=== PATIENT | male | born 1950 | race Caucasian/White ===

== ENCOUNTER → 2016-07-31 | Outpatient (CLI) | payer OTHER ==
--- NOTE | 2016-08-01 10:03 | P.ARTDOP ---
Arterial Doppler LOWER EXTREMITY ARTERIAL DOPPLER: DATE OF SERVICE: 07/31/2016 Reason for study: Left leg pain. Doppler waveforms: Multiphasic on the left. Pulse volume recording: Normal configuration throughout on the left. Right toe plethysmography waveforms appear normal.. Pressure gradients: None. Ankle-brachial indices: 0.97 on the right and greater than 1 on the left. Toe pressures: [] on the right, 102 on the left Impression: Normal study with limitations on the portion done on the right side.
== END | disposition home or self-care (01) ==
LOC: RADUSWWP 08:40
PROVIDERS: ATTEND Family Medicine
DX: M79.662 Pain in left lower leg (principal)
CPT/HCPCS: 93922

== ENCOUNTER → 2018-01-10 | Outpatient (CLI) | payer OTHER ==
--- NOTE | 2018-01-10 10:45 | US ---
EXAMINATION TYPE: US abdomen complete DATE OF EXAM: 01/10/2018 COMPARISON: NONE CLINICAL HISTORY: I73.9 Peripheral vascular disease, unspecified. AAA screening per order; smoker x 5 3 years EXAM MEASUREMENTS: Liver Length: 10.6 cm Gallbladder Wall: 0.2 cm CBD: 0.2 cm Spleen: 8.4 x 3.9 x 6.8 cm Right Kidney: 10.6 x 6.5 x 7.8 cm Left Kidney: 11.1 x 5.9 x 5.6 cm Pancreas: Heterogeneous Liver: periportal wall brightness is seen Gallbladder: wnl Evidence for sonographic Summers's sign: no CBD: wnl Spleen: small appearance Right Kidney: multiple cortical cysts seen with largest = 3.2 x 3.5 x 3.5cm mid pole; renal cyst not ed at pelvis; lateral lower pole round hyperechoic focus seen may be angiomyolipoma vs. other. Left Kidney: multiple renal cysts primarily at parapelvic region with largest = 1.7 x 1.7 x 1.3cm Upper IVC: wnl Abd Aorta: Ectasia Visualized pancreas is heterogeneous without worrisome mass or ductal dilatation. Aorta shows ectasia distally without greater than 3 cm aneurysm. IVC is visualized near upper abdomen. Visualized liver shows some hyperechogenicity central periPortal region could reflect calcification or pneumobilia. Ga llbladder is seen without shadowing gallstones. Simple appearing cysts are scattered throughout both kidneys. IMPRESSION: Ectasia of the abdominal aorta without greater than 3 cm AAA. Multiple simple appearing c ysts scattered throughout both kidneys. Cannot exclude central ductal calcification or pneumobilia. A dvise CT follow-up.
== END | disposition home or self-care (01) ==
LOC: RADUSWWP 08:30
DX: I77.811 Abdominal aortic ectasia (principal)
CPT/HCPCS: 76700

== ENCOUNTER → 2018-02-14 | Outpatient (CLI) | payer OTHER ==
[2018-02-14 08:47] LABS: Blood Urea Nitrogen 17 mg/dL (9-20)
--- NOTE | 2018-02-14 10:03 | CT ---
EXAMINATION TYPE: CT abdomen wo/w con DATE OF EXAM: 02/14/2018 COMPARISON: Ultrasound 01/10/2018 HISTORY: previous abnormal findings CT DLP: 965.50 mGycm CONTRAST: CT scan of the abdomen is performed with Oral Contrast and without and with IV Contrast, patient inj ected with 100 mL of Isovue 300. FINDINGS: LUNG BASES-: No visible nodule. No infiltrate. LIVER/GB: No calcified gallstones. No space occupying hepatic lesion. Biliary tree is of normal ca liber. PANCREAS: No inflammation. No distinct mass. SPLEEN: No splenic enlargement. No lesion seen. ADRENALS: No nodule. No thickening. KIDNEYS/BLADDER: No hydronephrosis. No nephrolithiasis. No distinct solid renal mass. Multiple bi lateral renal cysts. The largest cyst on the right measures 3.8 x 2.7 cm and is parapelvic in locatio n. On the left eye there are also multiple parapelvic and renal cortical cysts largest of which measu res 2.7 cm. BOWEL: Normal appendix. Normal bowel caliber. No inflammation. LYMPH NODES: No greater than 1cm abdominal or pelvic lymph nodes are appreciated. AORTA: No significant abnormality. OSSEOUS STRUCTURES: Degenerative changes noted. OTHER: No significant additional abnormality is seen. IMPRESSION: 1. Multiple simple renal cortical and parapelvic cysts noted.
== END | disposition home or self-care (01) ==
LOC: RADCTMAIN 08:03
DX: N28.1 Cyst of kidney, acquired (principal)
CPT/HCPCS: 82565; 84520; 74170; 36415; Q9967

== ENCOUNTER 2019-10-29 14:20 | Emergency (ER) | payer OTHER ==
[2019-10-29 14:28] VITALS: BP 173/92; PULSE 89; RESP 18; TEMP 98
[2019-10-29] MEDS ORDERED: FAMOTIDINE 20 MG TAB PO STA (14:34)
[2019-10-29] MEDS ORDERED: methylPREDNISolone SOD SUCCI 125 MG/2 ML VIAL IM ONE (14:34)
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
== END 2019-10-29 15:42 | disposition home or self-care (01) ==
LOC: EC 14:20
DX: T63.441A Toxic effect of venom of bees, accidental (unintentional), initial encounter (principal); I25.2 Old myocardial infarction; F17.200 Nicotine dependence, unspecified, uncomplicated; Z91.030 Bee allergy status; Z91.018 Allergy to other foods; Z79.82 Long term (current) use of aspirin
CPT/HCPCS: 96372; 99283; J2930

== ENCOUNTER → 2020-12-15 | Outpatient (CLI) | payer OTHER ==
--- NOTE | 2020-12-16 08:44 | CT ---
EXAMINATION TYPE: CT abdomen wo con DATE OF EXAM: 12/15/2020 COMPARISON: 02/14/2018 HISTORY: 70-year-old male R93.5, abnormal findings in diagnostic imaging, complaining of back pain. TECHNIQUE: Contiguous axial scanning of the abdomen without IV contrast. Coronal and sagittal reconst ructions performed. CT DLP: 284.7 mGycm Automated exposure control for dose reduction was used. FINDINGS: Heart normal size without pericardial effusion. Stable mild aneurysm lower descending thoracic aorta at 3.1 cm. Mild emphysematous change in the lower lungs. Some strandy left basilar atelectasis or sca rring. Small hiatal hernia. Noncontrast appearance of the liver, gallbladder, adrenal glands, spleen, and pancreas show no gross abdomen body by noncontrast CT. No dilated small bowel, free fluid, or free air. No mesenteric or retroperitoneal lymphadenopathy. Mild to moderate stool burden. No pericolonic inflammatory change. Pelvis not imaged. Moderate atherosclerotic calcifications and plaque continues into the abdominal aorta. There is fusif orm aneurysm infrarenal abdominal aorta to 3.5 cm versus 3.4 cm, previously. Aneurysm right common iliac artery 2.0 cm versus 1.8 cm, previously. Aneurysm left common iliac artery 2.2 cm versus 2.0 cm, previously. Redemonstrated are bilateral renal cysts measuring up to 4.3 cm on the right and 3.4 cm on the left. These are both renal cortical and parapelvic cysts and overall demonstrate a similar configuration. N o new contour deforming renal lesion is identified. Punctate nonobstructive 3 mm right renal calculus. Bones: Moderate degenerative disc disease L4-L5 with hypertrophic facet arthropathy. IMPRESSION: 1. REDEMONSTRATED COMBINATION OF RENAL CORTICAL AND PARAPELVIC CYSTS MEASURING UP TO 4.3 CM ON THE RI GHT AND 3.4 CM ON THE LEFT. PUNCTATE NONOBSTRUCTIVE 3 MM RIGHT RENAL CALCULUS. 2. ANEURYSMAL AORTA AND COMMON ILIAC ARTERIES. LOWER DESCENDING THORACIC AORTA STABLE AT 3.1 CM. INFR ARENAL ABDOMINAL AORTA MINIMALLY INCREASED AT 3.5 CM. RIGHT AND LEFT COMMON ILIAC ARTERY MEASURE 2.0 AND 2.2 CM, RESPECTIVELY (INCREASED FROM 1.8 CM AND 2.0 CM, PREVIOUSLY).
== END | disposition home or self-care (01) ==
LOC: RADCTMAIN 16:41
DX: N20.0 Calculus of kidney (principal); N28.1 Cyst of kidney, acquired; I71.4 Abdominal aortic aneurysm, without rupture
CPT/HCPCS: 74150

== ENCOUNTER → 2021-02-27 | Outpatient (CLI) | payer OTHER ==
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
== END | disposition home or self-care (01) ==
LOC: RADCTMAIN 13:45
DX: M48.061 Spinal stenosis, lumbar region without neurogenic claudication (principal); M51.16 Intervertebral disc disorders with radiculopathy, lumbar region; M43.16 Spondylolisthesis, lumbar region; M99.73 Connective tissue and disc stenosis of intervertebral foramina of lumbar region
CPT/HCPCS: 72131

== ENCOUNTER 2021-08-21 15:57 | Observation (INO) | payer OTHER, MEDICARE ==
[2021-08-21] MEDS ORDERED: ASPIRIN 81 MG PO STA (16:13)
[2021-08-21] MEDS ORDERED: NITROGLYCERIN SL TABS 0.4 MG TAB SUBLINGUAL STA ×2 (16:21→16:47)
[2021-08-21 16:29] LABS: Basophils # (A) 0.1 k/uL (0-0.2); Basophils % (A) 1 %; Eosinophils # (A) 0.4 k/uL (0-0.7); Eosinophils % (A) 5 %; HCT 38.7 % (39.0-53.0); HGB 12.8 gm/dL (13.0-17.5); Lymphocytes # (A) 4.1 k/uL (1.0-4.8); Lymphocytes % (A) 48 %; MCH 30.9 pg (25.0-35.0); MCV 93.6 fL (80.0-100.0); Mean Platelet Volume 7.8; Monocytes # (A) 0.3 k/uL (0-1.0); Monocytes % (A) 3 %; Neutrophils # (A) 3.4 k/uL (1.3-7.7); Neutrophils % (A) 41 %; Platelet Count 215 k/uL (150-450); RBC 4.14 m/uL (4.30-5.90); RDW 14.7 % (11.5-15.5); WBC 8.5 k/uL (3.8-10.6)
[2021-08-21 16:37] LABS: INR 0.9 (<1.2); Partial Thromboplastin Time 22.1 sec (22.0-30.0); Prothrombin Time 9.8 sec (9.0-12.0)
[2021-08-21 16:42] LABS: ALT 13 U/L (4-49); AST 26 U/L (17-59); African American GFR (CKD) >90 (>60 ml/min/1.73 sqM); Albumin 4.4 g/dL (3.5-5.0); Alkaline Phosphatase 88 U/L (38-126); Anion Gap 9 mmol/L; Blood Urea Nitrogen 19 mg/dL (9-20); Calcium 9.2 mg/dL (8.4-10.2); Carbon Dioxide 23 mmol/L (22-30); Chloride 107 mmol/L (98-107); Glucose 96 mg/dL (74-99); Magnesium 2.3 mg/dL (1.6-2.3); Non-African American GFR(CKD) 84 (>60 ml/min/1.73 sqM); Potassium 4.4 mmol/L (3.5-5.1); Sodium 139 mmol/L (137-145); Total Bilirubin 0.3 mg/dL (0.2-1.3); Total Protein 7.6 g/dL (6.3-8.2)
--- NOTE | 2021-08-21 16:45 | XR ---
EXAMINATION TYPE: XR chest 2V DATE OF EXAM: 08/21/2021 COMPARISON: 01/03/2016 HISTORY: Chest pain TECHNIQUE: FINDINGS: There is no heart failure nor confluent pneumonic infiltrate. Costophrenic angles are clear . There are chest leads. Heart size is normal. Bony thorax is intact. IMPRESSION: Normal chest. No adverse change.
[2021-08-21] MEDS ORDERED: NITROGLYCERIN SL TABS 0.4 MG TAB SUBLINGUAL PRN (17:10)
[2021-08-21] MEDS ORDERED: NALOXONE 0.4 MG/ML 1 ML VIAL IV PRN (17:10)
[2021-08-21] MEDS ORDERED: HEPARIN SODIUM 1,000 UN/ML (10ML VL) IV ONE (17:10)
[2021-08-21] MEDS ORDERED: HEPARIN SODIUM 1,000 UN/ML (10ML VL) IV PRN (17:10)
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
[2021-08-21] MEDS ORDERED: HEPARIN SOD,PORK IN 0.45% NACL 25,000 UNIT in 0.45% NACL 1 250ML.BAG IV SCH (17:15)
[2021-08-21] MEDS: PANTOPRAZOLE 40 MG TABLET PO SCH (20:04)
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
[2021-08-22 06:29] LABS: Prothrombin Time 10.5 sec (9.0-12.0)
[2021-08-22 07:22] VITALS: RESP 16; TEMP 97.8
[2021-08-22] MEDS ORDERED: ASPIRIN 81 MG PO SCH (09:00)
[2021-08-22 09:12] LABS: Basophils # (A) 0.05 X 10*3/uL (0.00-0.10); Basophils % (A) 0.7 %; Eosinophils # (A) 0.38 X 10*3/uL (0.04-0.35); Eosinophils % (A) 5.3 %; HCT 35.9 % (39.6-50.0); HGB 11.4 g/dL (13.0-17.0); Immature Grans, Automated 0.3 %; Lymphocytes # (A) 3.08 X 10*3/uL (0.90-5.00); MCH 28.9 pg (27.0-32.0); MCHC 31.8 g/dL (32.0-37.0); MCV 91.1 fL (80.0-97.0); Mean Platelet Volume 10.5 fL (9.5-12.2); Monocytes # (A) 0.46 X 10*3/uL (0.20-1.00); Monocytes % (A) 6.4 %; NRBC Per 100 WBC 0 /100 WBCS (0.0-0.0); Neutrophils # (A) 3.17 X 10*3/uL (1.80-7.70); Neutrophils % (A) 44.3 %; Platelet Count 186 X 10*3/uL (140-440); RBC 3.94 X 10*6/uL (4.40-5.60); RDW 15.2 % (11.5-14.5); WBC 7.16 X 10*3/uL (4.50-10.00)
[2021-08-22] MEDS ORDERED: REGADENOSON 0.4 MG/5 ML SYRINGE IV PRN (09:33)
[2021-08-22] MEDS ORDERED: CAFFEINE CITRATE 60 MG/3 ML VIAL IV PRN (09:33)
[2021-08-22] MEDS ORDERED: AMINOPHYLLINE 500 MG/20 ML VIAL IV PRN (09:33)
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
[2021-08-22] MEDS: PANTOPRAZOLE 40 MG TABLET PO SCH (10:05)
--- NOTE | 2021-08-22 11:48 | CA ---
Transthoracic Echo Report Name: Franky Nation Age: 71 Gender: M : 1950 Exam Date: 08/22/2021 08:15 Exam Location: [place] [facility] Ht (in): 71 Wt (lb): 165 Ordering Physician: Troy Ravi MD Attending/Referring Phys: Manager Of [employer] Procedure CPT: Indications: Chest Pain Cardiac Hx: Technical Quality: Good Contrast 1: Total Dose (mL): Contrast 2: Total Dose (mL): MEASUREMENTS (Male / Female) Normal Values 2D ECHO LV Diastolic Diameter PLAX 5.0 cm 4.2 - 5.9 / 3.9 - 5.3 cm LV Systolic Diameter PLAX 2.2 cm IVS Diastolic Thickness 0.7 cm 0.6 - 1.0 / 0.6 - 0.9 cm LVPW Diastolic Thickness 0.9 cm 0.6 - 1.0 / 0.6 - 0.9 cm LV Relative Wall Thickness 0.3 RV Internal Dim ED PLAX 2.0 cm LA Volume 39.5 cm??? 18 - 58 / 22 - 52 cm??? M-MODE Aortic Root Diameter MM 3.9 cm LA Systolic Diameter MM 2.3 cm LA Ao Ratio MM 0.6 MV E Point Septal Separation 1.4 cm AV Cusp Separation MM 2.1 cm DOPPLER AV Peak Velocity 99.7 cm/s AV Peak Gradient 4.0 mmHg AI Peak Velocity 110.2 cm/s AI Peak Gradient 4.9 mmHg AI Pressure Half Time 1720.3 ms MV Area PHT 3.3 cm??? Mitral E Point Velocity 71.2 cm/s Mitral A Point Velocity 88.7 cm/s Mitral E to A Ratio 0.8 MV Deceleration Time 229.5 ms MV E' Velocity 6.0 cm/s Mitral E to MV E' Ratio 11.9 TR Peak Velocity 126.0 cm/s TR Peak Gradient 6.3 mmHg Right Ventricular Systolic Press 10.8 mmHg FINDINGS Left Ventricle Normal Left ventricular size, wall thickness, systolic function with no obvious regional wall motion abnormalities. Normal Left ventricular diastolic filling pattern. Left ventricular ejection fraction is estimated at 55-60 %. Right Ventricle The right ventricle is normal in size and function. Right Atrium The right atrium is normal in size. Left Atrium The left atrium is normal in size. Mitral Valve Structurally normal mitral valve without significant stenosis or prolapse. There is trace mitral regurgitation. Aortic Valve Structurally normal aortic valve without significant sclerosis or stenosis. There is no aortic regurgitation. Tricuspid Valve Structurally normal tricuspid valve without significant stenosis. Pulmonary artery systolic pressure is normal. Trace tricuspid regurgitation. Pulmonic Valve Structurally normal pulmonic valve without significant stenosis. There is no pulmonic regurgitation. Pericardium Normal pericardium without effusion. Aorta Normal aortic root dimension. CONCLUSIONS Normal LV function Previewed by: Dr. David Parr MD (Electronically Signed) Final Date: 22 August 2021 11:47
[2021-08-22 12:45] LABS: Anion Gap 10.5 mmol/L (10.00-18.00); BUN/Creat Ratio 15.23 Ratio (12.00-20.00); Blood Urea Nitrogen 14.3 mg/dL (9.0-27.0); Calcium 8.7 mg/dL (8.7-10.3); Carbon Dioxide 22.7 mmol/L (20.0-27.5); Non-African American GFR(CKD) 80.2 (60.0-200.0); Potassium 4.7 mmol/L (3.5-5.5)
--- NOTE | 2021-08-22 13:02 | EST ---
EXERCISE STRESS INDICATION: Chest pain. AGE: 71 SEX: M HT: @@ WT: @@ PROTOCOL: @@ STAGE: @@ DURATION OF EXERCISE: @@ HEART RATE REST: @@ BLOOD PRESSURE REST: @@ MAXIMUM HEART RATE ACHIEVED: @@ MAXIMUM BLOOD PRESSURE: @@ 85% MPHR: @@ 100% MPHR: @@ METS: @@ RESULTS: Baseline EKG shows sinus rhythm, normal axis, normal intervals. Patient was given intravenous Lexiscan as per protocol. Did not have chest pain or diagnostic ST-segment depression. CONCLUSIONS: 1. Negative stress test by EKG criteria. 2. Cardiolite portion of the stress test will be reported separately. MMODL / IJN: [id number] /
--- NOTE | 2021-08-22 13:20 | NM ---
EXAMINATION TYPE: NM stress lexiscan cardiolite DATE OF EXAM: 08/22/2021 COMPARISON: NONE HISTORY: 71-year-old male chest pain, vertigo. 25+-pack-year history of smoking, previous [place], family history of heart disease. TECHNIQUE: After the intravenous administration of 9.8 mCi Tc 99m Sestamibi - Cardiolite resting SPE CT images acquired 45 minutes post injection. The patient received 0.4mg Lexiscan, 25.5 mCi Tc 99m Sestamibi - Stress images obtained [address] injection FINDINGS: Review of stress and rest SPECT images demonstrates a small fixed perfusion defect along the mid to a pical inferoseptal wall. No additional distinct perfusion abnormality. Gated analysis shows normal w all motion with an estimated left ventricular ejection fraction of 67 %. TID is calculated at 1.06, upper limits of normal. IMPRESSION: 1. 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 2. No scintigraphic evidence for reversible ischemia.
[2021-08-22 13:54] VITALS: BP 158/55; PULSE 53
--- NOTE | 2021-08-22 14:13 | P.DS ---
Providers Date of admission: 08/21/21 17:27 Expected date of discharge: 08/22/21 Attending physician: Maggi Hassan MD Consults: 08/21/21 17:10 Consult Physician Routine Consulting Provider: [facility] Consult Reason/Comments: chest pain, concern for unstable angina Do you want consulting provider notified?: Yes Primary care physician: [facility] Hospital Course: Chest pain, atypical Hypertension 71-year-old male with history of coronary artery disease presented for sudden onset chest pain. Upon arrival patient was afebrile, 197/86, heart rate 70, 100% room air. CBC was unremarkable. Chemistries are unremarkable. Liver function tests were unremarkable. Coags were unremarkable. Initial troponin was less than 0.012, trended negative. EKG showed normal sinus rhythm without ischemic changes. Chest x-ray showed normal chest without any acute cardiopulmonary pathology. Patient was treated with aspirin, statin, heparin drip. Patient was seen by cardiology and recommended to undergo Lexiscan stress test. This scan was negative for reversible ischemia, but did show a fixed defect in the inferior aspect of the heart consistent with old infarct. Patient was cleared by cardiology to go home, discharged with new medications were aspirin and statin. Also discharge with new medication for metoprolol. Patient will follow-up with PCP and cardiology. Gen: awake, alert HEENT: normocephalic, atraumatic, good hearing acuity, moist mucous membranes Resp: good air exchange, breathing comfortably with no accessory muscle use CVS: good distal perfusion x 4, GI: soft, NTTP, ND : no SPT, no CVAT, art catheter not present MSK: no pitting edema, no clubbing Neuro: non-focal, moving all extremities Psych: cooperative, euthymic mood Patient Condition at Discharge: Good Plan - Discharge Summary Discharge Rx Participant: No New Discharge Prescriptions: New Atorvastatin [Lipitor] 80 mg PO HS #30 tab Continue Aspirin EC [Ecotrin Low Dose] 81 mg PO DAILY Discontinued Ibuprofen [Motrin] 600 mg PO Q6H PRN PRN Reason: Pain Discharge Medication List Aspirin EC [Ecotrin Low Dose] 81 mg PO DAILY 10/05/15 [History] Atorvastatin [Lipitor] 80 mg PO HS #30 tab 08/22/21 [Rx] Follow up Appointment(s)/Referral(s): [facility],Clinic [Primary Care Provider] - 1-2 days Discharge Disposition: HOME SELF-CARE
== END 2021-08-22 15:00 | disposition home or self-care (01) ==
LOC: EC 15:57 → 6NMEDSUR 17:27
PROVIDERS: ADMIT Internal Medicine; ATTEND Internal Medicine
DX: R07.89 Other chest pain (principal); I10 Essential (primary) hypertension; I25.10 Atherosclerotic heart disease of native coronary artery without angina pectoris; D64.9 Anemia, unspecified; I25.2 Old myocardial infarction; R61 Generalized hyperhidrosis; F43.10 Post-traumatic stress disorder, unspecified; F17.210 Nicotine dependence, cigarettes, uncomplicated; Z77.098 Contact with and (suspected) exposure to other hazardous, chiefly nonmedicinal, chemicals; Z79.82 Long term (current) use of aspirin; Z91.030 Bee allergy status; Z91.018 Allergy to other foods; Z87.828 Personal history of other (healed) physical injury and trauma; Z80.9 Family history of malignant neoplasm, unspecified; Z82.49 Family history of ischemic heart disease and other diseases of the circulatory system
CPT/HCPCS: 96366 ×3; 96376; 96365; 99291; 36415; 93005; 93017; 93306; 80053; 80048; 83735; 84484; 85025 ×2; 85610 ×2; 85730 ×2; 71046; 78452; G0378 ×2; A9500; J1644 ×2; J2785

== ENCOUNTER 2022-02-12 11:18 | Emergency (ER) | payer OTHER ==
--- NOTE | 2022-02-12 12:15 | XR ---
EXAMINATION TYPE: XR pelvis AP view DATE OF EXAM: 02/12/2022 COMPARISON: None HISTORY: Fall, pain TECHNIQUE: AP pelvis FINDINGS: There is a left hip prosthesis. No acute fractures or dislocations are evident. There is mo derate degenerative change of the right hip. Follow up exams can be performed 7-10 days of acute trau ma for continued pain. IMPRESSION: 1. No acute osseous abnormalities AP pelvis
--- NOTE | 2022-02-12 12:16 | XR ---
EXAMINATION TYPE: XR knee complete LT DATE OF EXAM: 02/12/2022 COMPARISON: None HISTORY: Fall, pain TECHNIQUE: 3 view left knee FINDINGS: Mild narrowing medial lateral compartment joint spaces is present. No acute fracture or dis location is evident. No joint effusion is evident. Small posterior superior patellar spur is present. Follow up exams can be performed 7-10 days from acute trauma for continued pain. IMPRESSION: 1. No acute osseous abnormality left knee
--- NOTE | 2022-02-12 12:17 | XR ---
EXAMINATION TYPE: XR femur LT DATE OF EXAM: 02/12/2022 COMPARISON: None HISTORY: Fall, pain TECHNIQUE: 2 view left femur FINDINGS: Left femoral prosthesis is present. Acetabular component is present. No acute fracture or dislocation is evident. Mild degenerative changes are at the knee. Acetabular sp urs present. Vascular calcification is noted. Follow-up exams can be performed as clinically indicate d. IMPRESSION: 1. No acute osseous abnormality left femur
[2022-02-12] MEDS ORDERED: ACET/COD 300 MG/30 MG STARTER PACK 6 TAB BTL PO STA (12:29)
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
[2022-02-12 12:45] VITALS: RESP 18
[2022-02-12 12:46] VITALS: BP 138/78; PULSE 89; TEMP 97.5
== END 2022-02-12 12:40 | disposition home or self-care (01) ==
LOC: EC 11:18
DX: S80.12XA Contusion of left lower leg, initial encounter (principal); I25.2 Old myocardial infarction; F17.200 Nicotine dependence, unspecified, uncomplicated; Z91.030 Bee allergy status; Z91.018 Allergy to other foods; Z79.82 Long term (current) use of aspirin; W19.XXXA Unspecified fall, initial encounter; Y92.009 Unspecified place in unspecified non-institutional (private) residence as the place of occurrence of the external cause
CPT/HCPCS: 72170; 99284

== ENCOUNTER → 2022-09-03 | Outpatient (CLI) | payer OTHER | END | disposition home or self-care (01) | LOC: LABPAT 13:29 | PROVIDERS: ATTEND Orthopaedic Surgery | DX: Z01.812 Encounter for preprocedural laboratory examination (principal); M16.11 Unilateral primary osteoarthritis, right hip; Z22.322 Carrier or suspected carrier of Methicillin resistant Staphylococcus aureus | CPT/HCPCS: 87070 ==

== ENCOUNTER 2022-09-10 08:03 | Day surgery (SDC) | payer OTHER ==
--- NOTE | 2022-09-09 11:51 | HP ---
HISTORY AND PHYSICAL DATE OF SURGERY: 09/10/2022. HISTORY OF PRESENT ILLNESS: Franky Nation is a 72-year-old patient seen with symptomatic right hip osteoarthritis. We discussed options regarding treatment. He elected to proceed with direct anterior right total hip arthroplasty. Consent regarding the procedure was obtained. PAST MEDICAL HISTORY: Noncontributory. PAST SURGICAL HISTORY: Left total hip arthroplasty. DAILY MEDICATIONS: Aspirin, Tylenol. ALLERGIES: None. SOCIAL HISTORY: Denies tobacco use. PHYSICAL EVALUATION OF THE RIGHT HIP: He has diffuse tenderness about the hip girdle. Limited range of motion. Severe pain. Positive hip impingement sign. Straight-leg raise negative. His distal neurovascular exam is intact. RADIOGRAPHS: Revealed severe osteoarthritic changes. IMPRESSION: Right hip osteoarthritis. PLAN: Direct anterior right total hip arthroplasty. MMODL / IJN: [id number] /
[~2022-09-10 08:03] MED LIST: DEXAMETHASONE SOD PHOSPHATE 4 MG/ML 1 ML VIAL IV ONE; HYDROmorphone 0.5 MG/0.5 ML SYRINGE IVP PRN; LIDOCAINE 1% (10MG/ML) FOR IV START INTRADERMA PRN; ONDANSETRON 4 MG/2 ML VIAL IVP ONE; droPERidol 5 MG/2 ML VIAL IVP PRN
[2022-09-10] MEDS ORDERED: TRANEXAMIC 1,000 MG/100ML-NACL 1,000 MG in SALINE 1 100ML.BAG IVPB PRN (08:43)
[2022-09-10] MEDS ORDERED: ACETAMINOPHEN TAB 500 MG TAB ONE (08:57)
[2022-09-10] MEDS ORDERED: LACTATED RINGERS 1,000 ML IV ONE ×2 (09:11→11:08)
[2022-09-10] MEDS ORDERED: fentaNYL (PF) 50 MCG/ML 2 ML AMP IVP ONE (09:41)
[2022-09-10] MEDS ORDERED: MIDAZOLAM 2 MG/2 ML VIAL IVP ONE (09:41)
[2022-09-10] MEDS ORDERED: PHENYLEPHRINE-0.9% NACL SYG 1,000 MCG/10 ML SYRINGE ONE (10:02)
[2022-09-10] MEDS ORDERED: PROPOFOL 10 MG/ML 20 ML VIAL IV ONE (10:02)
[2022-09-10] MEDS ORDERED: ePHEDrine 50 MG/ML 1 ML VIAL ONE (10:02)
[2022-09-10] MEDS ORDERED: fentaNYL (PF) 50 MCG/ML 2 ML AMP ONE (10:02)
[2022-09-10] MEDS ORDERED: TRANEXAMIC 1,000 MG/100ML-NACL PREMIX BAG ONE (10:02)
[2022-09-10] MEDS ORDERED: ROPIVACAINE 5 MG/ML 30 ML VIAL ONE (10:02)
--- NOTE | 2022-09-10 10:34 | P.ANPRN ---
Procedure Note - Anesthesia - Nerve Block Performed Right Lc Single Time Out Performed: Yes (912) Date of Procedure: 09/10/22 Procedure Start Time: :14 Procedure Stop Time: :21 Location of Patient: PreOp Indication: Acute Post-Operative Pain, Requested by Surgeon Specifically requested for management of pain by DrJessica: Pollo Constantino Sedation Type: Sedate with meaningful contact maintained Preparation: Sterile Prep Position: Supine Needle Types: Pajunk Needle Gauge: 21 Ultrasound used to visualize needle placement: Yes Ultrasound used to observe medication spread: Yes Injectate: 0.5% Ropivacaine (see comment for volume) (30cc) Blood Aspirated: No Pain Paresthesia on Injection Noted: No Resistance on Injection: Normal Image Stored and Saved: Yes Events: Uneventful and Well Tolerated
[2022-09-10] MEDS ORDERED: ceFAZolin 1,000 MG in SODIUM CHLORIDE 0.9% 1,000 ML IRRIGATION ONE (10:40)
[2022-09-10] MEDS ORDERED: HYDROcodone/APAP 5-325MG 1 EACH TAB PO PRN (11:38)
[2022-09-10] MEDS ORDERED: NALOXONE 0.4 MG/ML 1 ML VIAL IV PRN (11:38)
[2022-09-10] MEDS ORDERED: HYDROmorphone 0.5 MG/0.5 ML SYRINGE IVP PRN ×3 (11:38)
[2022-09-10] MEDS ORDERED: ONDANSETRON 4 MG/2 ML VIAL IVP PRN (11:38)
--- NOTE | 2022-09-10 11:38 | P.OP ---
Date of Procedure: 09/10/22 Preoperative Diagnosis: Right hip osteoarthritis Postoperative Diagnosis: Right hip osteoarthritis Procedure(s) Performed: Direct anterior right total hip arthroplasty Implants: 1. Depuy Corail 135 standard collar KA size 11 press-fit femoral stem 2. Depuy pinnacle 56 mm press-fit acetabular shell 3. Depuy pinnacle neutral polyethylene acetabular liner 36 mm ID 56 mm OD 4. Biolox delta ceramic femoral head +5 36 mm Anesthesia: regional (erector spinae block), spinal Surgeon: Pollo Constantino Order Department Supervisor #1: Mayo Davidson Estimated Blood Loss (ml): 65 Pathology: none sent Condition: stable Disposition: PACU Indications for Procedure: 72-year-old gentleman seen with symptomatic right hip osteoarthritis. After treatment options were discussed, he elected to proceed with total hip arthroplasty. Operative Findings: See description of procedure Description of Procedure: The patient was taken to the operative suite. Patient underwent a spinal anesthetic by the department of anesthesia. Patient was then transferred to the [place] table. Patient was given preoperative IV antibiotics and TXA. Both lower extremities were placed in standard leg spars. The hip was then prepped and draped in the normal sterile orthopedic fashion. A standard anterior incision was made beginning 3 cm lateral and 1 cm distal to the ASIS extending 10 cm. Dissection was then carried down through the subcutaneous soft tissues down to the fascia overlying the tensor fascia mike. An incision was now made through the fascia. Careful dissection was taken down exposing the tensor fascia mike muscle. A Cobra retractor was now placed along the medial femoral neck and a second one along the lateral femoral neck. The venous circumflex vessels were now identified, cauterized and clipped. We identified the anterior hip capsule. An incision was made through the hip capsule along the lateral border. I performed a partial anterior capsulectomy. Retractors were now placed around the femoral neck itself. A femoral neck cut was now made with a sagittal saw. It was completed with an osteotome at the lateral neck area. The femoral head was now removed without difficulty. The extremity was now rotated to 60 of external rotation. It was locked in position. Residual labrum was now debrided out. Serial reaming was performed of the acetabulum while Kobi SALINAS ass isted holding an anterior retractor for exposure. Once we reached the appropriate size and a trial was position and fit nicely. The appropriate size was now chosen opened and made available. It was introduced into the acetabulum without difficulty. The C-arm/fluoroscopy was now brought into the operative field. We made sure we had a true AP pelvic view. We now under direct C- arm/fluoroscopy introduced into the acetabular component with appropriate version and inclination. I held the cup in appropriate position well Kobi SALINAS used a mallet to seat the acetabular component. I noted the component now to be well seated and stable. Acetabular cup introduce her was removed. The C-arm was pulled back. An appropriate liner was introduced and clicked into position. It was felt to be stable. At this point retractors were removed. The extremity was now placed into 140 external rotation with no traction. The leg was now dropped to the ground and adducted. Appropriate retractors were now positioned along the proximal femur. We also placed our femoral look into position. Additional capsular releasing was performed to gain access to the proximal femur. We now used a box osteotome. A canal finder was now utilized. Serial broaching was now performed with the assistance of Kobi SALINAS tapping the broaches down with a mallet while held the broach in appropriate rotation and position. This was done until we reached the appropriate size with good overall rotational stability. Appropriate calcar planing was performed. A trial head/neck was placed into position. The hip was now reduced. The C- arm/fluoroscopy was brought back into the operative field. I obtained AP pelvis was demonstrated adequate leg length alignment. The trial components appeared adequately sized and positioned. The C-arm/fluoroscopy was pulled back. Retractors were repositioned and the hip was dislocated. The leg was again taken down to the ground and adducted. Appropriate retractors were repositioned as well as the femoral hook. All trial components were removed. The femoral implant was opened along with the femoral head. The femoral implant was introduced on the appropriate handle into our pre-broached area. I held the component position well Kobi SALINAS used a mallet to seat the femoral component. The femoral component was now noted to be well seated and stable.. The femoral head was introduced with good positioning and fixation noted. Retractors were now removed. The hip was now reduced. There appeared be good positioning of the hip confirmed on intraoperative fluoroscopy. Spot films were obtained to document this. A second gram of TXA was given. The deep and superficial soft tissues were infiltrated with local analgesic. Bipolar cautery had been utilized intermittently through the procedure for hemostasis. The wound was irrigated copiously with pulse lavage mechanical irrigation. The fascia was repaired with Vicryl suture. The subcutaneous soft tissues were repaired in layers with Vicryl suture. The skin was approximated with pernio/Dermabond. Sterile dressings were applied. Patient was then awakened, transferred to a bed and taken to recovery in stable condition. Kobi SALINAS assisted with the complex procedure.
--- NOTE | 2022-09-10 11:48 | FL ---
Intraoperative/procedural fluoroscopic services were provided. Total fluoroscopy time is 16 seconds w ith a total of 5 submitted images to PACS. Please see the operative/procedural note for further detai ls. DAP: 1.4365 Gycm2
[2022-09-10] MEDS: LACTATED RINGERS 1,000 ML IV SCH ×2 (14:21→17:23)
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
[2022-09-10] MEDS ORDERED: NICOTINE GUM (POLACRILEX) 2 MG GUM BUCCAL PRN (15:16)
[2022-09-10] MEDS ORDERED: ALBUTEROL NEBULIZED 2.5 MG/3 ML INHALATION PRN (15:16)
[2022-09-10] MEDS ORDERED: ACETAMINOPHEN TAB 325 MG TAB PO PRN (15:16)
[2022-09-10] MEDS: HYDROcodone/APAP 7.5-325MG 1 EACH TAB PO PRN ×2 (15:16→20:56)
[2022-09-10] MEDS: NICOTINE 14MG/24HR PATCH TRANSDERM SCH (16:36)
[2022-09-10] MEDS ORDERED: SENNOSIDES-DOCUSATE SODIUM 1 EACH TAB PO SCH (21:00)
[2022-09-11] MEDS: LACTATED RINGERS 1,000 ML IV SCH ×2 (00:52)
[2022-09-11] MEDS: HYDROcodone/APAP 7.5-325MG 1 EACH TAB PO PRN (01:34)
[2022-09-11 08:06] VITALS: BP 115/58; PULSE 80; RESP 18; TEMP 98
[2022-09-11] MEDS ORDERED: FAMOTIDINE 20 MG TAB PO SCH (09:00)
[2022-09-11] MEDS ORDERED: MELOXICAM 7.5 MG TAB PO SCH (09:00)
[2022-09-11] MEDS ORDERED: ENOXAPARIN 40 MG/0.4 ML SYRINGE SQ SCH (09:00)
[2022-09-11] MEDS: NICOTINE 14MG/24HR PATCH TRANSDERM SCH (09:04)
--- NOTE | 2022-09-11 09:30 | P.PN ---
Subjective Progress Note Date: 09/11/22 Principal diagnosis: Status post direct anterior right total hip arthroplasty Patient evaluated at bedside, he is resting comfortable in his hospital chair, his is present at bedside. Patient was able to ambulate well with physical therapy. He notes some occasional discomfort in the right hip region with walking. He denies any headaches, lightheadedness, chest pain or shortness of breath. He's been urinating with no difficulties. Objective - Vital Signs Vital signs: Vital Signs Temp 98.0 F 09/11/22 07:03 Pulse 80 09/11/22 07:03 Resp 18 09/11/22 07:03 BP 115/58 09/11/22 07:03 Pulse Ox 96 09/11/22 09:15 FiO2 21 09/11/22 09:15 Intake & Output 09/10/22 09/11/22 09/11/22 18:59 06:59 18:59 Intake Total 2131 Output Total 65 650 Balance 2066 -650 Weight 71.1 kg Intake: IV 1651 Oral 480 Output: Urine 650 Straight 550 Estimated Blood Loss 65 Other: # Voids 0 1 - Exam Right lower extremity: Incision is clean, dry, and intact. The foam dress is in good condition. There is minimal soft tissue swelling and ecchymosis surrounding the medial and lateral aspects of the incision. Calf is soft, no tenderness with palpation. Plantar flexion, dorsiflexion, EHL, FHL are intact. Sensory exam to light touch throughout the extremity is intact, dorsal pedis pulses 2+. Assessment and Plan Assessment: Postoperative day 1 status post direct anterior right total hip arthroplasty Plan: Pain control, plan for discharge home on Magna 7.5 mg/325 mg DVT prophylaxis, aspirin 81 mg twice a day for 30 days Wound care instructions discussed, this including icing and elevating along with showering Physical therapy and nursing after discharge Medical recommendations Discharge planning: Stable for discharge Time with Patient: Less than 30
[2022-09-11 11:16] LABS: Basophils # (A) 0.02 X 10*3/uL (0.00-0.10); Basophils % (A) 0.2 %; Eosinophils # (A) 0.03 X 10*3/uL (0.04-0.35); Eosinophils % (A) 0.3 %; HCT 26.7 % (39.6-50.0); HGB 8.6 d/dL (12.0-15.0); Lymphocytes # (A) 2.83 X 10*3/uL (0.90-5.00); Lymphocytes % (A) 28.7 %; MCH 30.6 pg (27.0-32.0); MCHC 32.2 d/dL (32.0-37.0); Mean Platelet Volume 10.2 FL (9.5-12.2); Monocytes % (A) 7.1 %; NRBC Per 100 WBC 0 X 10*3/uL (0.00-0.01); Neutrophils # (A) 6.25 X 10*3/uL (1.80-7.70); Neutrophils % (A) 63.4 %; Platelet Count 127 X 10*3/uL (140-440); RBC 2.81 X 10*6/uL (4.40-5.60); RDW 15.2 % (11.5-14.5); WBC 9.86 X 10*3/uL (4.50-10.00)
--- NOTE | 2022-09-11 17:02 | P.PN ---
Subjective Progress Note Date: 09/11/22 Patient is a 72-year-old male with a history of moderate COPD, ongoing tobacco abuse, coronary artery disease, and PTSD who presented for elective right direct anterior total hip arthroplasty. He underwent the procedure well without any immediate postoperative complications. Patient seen and examined this morning. Patient reports well controlled pain in his right hip. He denies any chest pain, shortness breath, lightheadedness, dizziness, or nausea. He is urinating freely. Passing gas. Vital signs reviewed General: nontoxic, no distress, appears at stated age Derm: warm, dry Eyes: EOMI, no lid lag, anicteric sclera ENT: Nose and ears atraumatic Cardiovascular: good distal perfusion in all 4 extremities Lungs: no accessory muscle use Ext: no gross muscle atrophy, no contractures Neuro: no focal neuro deficits Psych: Alert, oriented, appropriate affect Assessment: 72-year-old male status post direct right anterior total hip arthroplasty Coronary artery disease Hypertension -Is not chronically on any blood pressure cholesterol medications as he does not tolerate these well -Resume aspirin when okay with orthopedic surgery COPD without exacerbation -Patient does not take any bronchodilators at baseline -And when necessary albuterol -Has followed with Dr. Cheney recently Tobacco Dependency -Start nicotine patch 14 g daily and nicotine gum to micrograms every 4 hours as needed Thank you for allowing us to participate in the care of this pleasant patient. Do not hesitate to contact us with questions. Someone can be reached from the [facility] hospitalist group all hours of the day at [phone] or via [email or web address]. Objective - Vital Signs Vital signs: Vital Signs Temp 98.0 F 09/11/22 07:03 Pulse 80 09/11/22 07:03 Resp 18 09/11/22 10:09 BP 115/58 09/11/22 07:03 Pulse Ox 96 09/11/22 09:15 FiO2 21 09/11/22 09:15 Intake & Output 09/10/22 09/11/22 09/11/22 18:59 06:59 18:59 Intake Total 2131 Output Total 65 650 Balance 6 -650 Weight 71.1 kg Intake: IV 1651 Oral 480 Output: Urine 650 Straight 550 Estimated Blood Loss 65 Other: Voiding Method Toilet # Voids 0 1 - Labs CBC & Chem 7: 09/11/22 06:14 Labs: Abnormal Lab Results - Last 24 Hours (Table) 09/11/22 Range/Units 06:14 RBC 2.81 L (4.40-5.60) X 10*6/uL Hgb 8.6 L (12.0-15.0) d/dL Hct 26.7 L (39.6-50.0) % RDW 15.2 H (11.5-14.5) % Plt Count 127 L (140-440) X 10*3/uL Eosinophils # 0.03 L (0.04-0.35) X 10*3/uL
--- NOTE | 2022-09-12 12:53 | P.DS ---
Providers Date of admission: 09/10/2022 Expected date of discharge: 09/11/22 Attending physician: Pollo Tavarez Consults: 09/10/22 11:38 Consult Physician Routine Consulting Provider: Wilfredo Samuels Consult Reason/Comments: Medical management Do you want consulting provider notified?: Yes Primary care physician: [facility] Hospital Course: Date of admission: 09/10/2022 Date of discharge: 09/11/2022 Admission diagnosis: Status post direct anterior right total hip arthroplasty Discharge diagnosis: Same Attending physician: Dr. tavarez Surgical procedures: Direct anterior right total hip arthroplasty Brief history: Patient is a 72-year-old male with a history of progressive primary right hip osteoarthritis. At this point patient has failed conservative treatment measures and has opted to proceed with a elective direct anterior right total hip arthroplasty. Hospital course: Details of patient's surgery can be found in operative report. Patient tolerated the procedure well and was subsequently transported to orthopedic floor. Patient's orthopeidc and medical care was provided daily. Patient had daily laboratory tests performed for evaluation of overall blood counts. Patient had daily physical therapy to include strengthening range of motion as well as education with walker ambulation. Patient was treated with Lovenox for their postoperative DVT prophylaxis during their inpatient stay. Patient was noted to have a relatively uneventful postoperative course. Patient reported satisfactory pain control with oral pain medications by postoperative day 0. Patient showed satisfactory progress with physical therapy. Patient moved steadily through the program and had no difficulty meeting the goals by postoperative day 1. Given patient's otherwise satisfactory course and having met physical therapy goals, plan is to discharge patient home on postoperative day 1. Discharge condition/disposition: Patient will be discharged home in stable condition. Discharge medications: Instructions are given on resumption of patient's normal daily medications per primary care recommendation, in addition patient will be prescribed [place] 7.5 mg/325 mg, aspirin 81 mg. Discharge instructions: 1. Wound care and infection precautions, keep incision dry and covered while showering, no lotions, creams, moisturizers. No soaking, tubs, pools, hottubs. Do not scrub over the incision. 2. Weight-bear as tolerated with walker / cane until follow-up. 3. Ice and elevate when necessary. Do not exceed 20 minutes per hour with ice pack. 4. Utilize compression sleeve until seen at first follow up appointment. 5. Visiting nursing care. 6. Home physical therapy. 7. Pain meds and anticoagulants per prescription. 8. Pain medication has potential to cause constipation. Increase oral fluid and fiber intake. Contact primary care provider if you have not had a bowel movement within 48 hours after discharge 9. No anti-inflammatory medication until discussed at first post operative visit, this including Motrin, Aleve, Mobic, Diclofenac. 10. Follow up in office at 2 weeks postop with Kobi Davidson PA-C/Seymour Rodriguez 11. Follow up with your primary care doctor 7-10 days after discharge. 12. Contact [facility] with any questions, . Procedures: Direct anterior right total hip arthroplasty Patient Condition at Discharge: Good Plan - Discharge Summary Discharge Rx Participant: No New Discharge Prescriptions: New Aspirin [Adult Low Dose Aspirin EC] 81 mg PO BID #60 tab HYDROcodone/APAP 7.5-325MG [[place] 7.5] 1 each PO Q6HR PRN #28 tab PRN Reason: Pain No Action Aspirin EC [Ecotrin Low Dose] 81 mg PO DAILY Acetaminophen Tab [Tylenol] 650 mg PO BID Discharge Medication List Aspirin EC [Ecotrin Low Dose] 81 mg PO DAILY 10/05/15 [History] Acetaminophen Tab [Tylenol] 650 mg PO BID 09/05/22 [History] Aspirin [Adult Low Dose Aspirin EC] 81 mg PO BID #60 tab 09/11/22 [Rx] HYDROcodone/APAP 7.5-325MG [[place] 7.5] 1 each PO Q6HR PRN #28 tab 09/11/22 [Rx] Follow up Appointment(s)/Referral(s): Mayo Davidson PAC [[facility] [employer] [facility]] - 10/03/22 2:30 pm [facility] [NON-STAFF] - As Needed [facility],Clinic [Primary Care Provider] - As Needed Patient Instructions/Handouts: Joint Replacement Surgery (DC) Activity/Diet/Wound Care/Special Instructions: Orthopedic Discharge Instructions: 1. Wound care and infection precautions, keep incision dry and covered while showering, no lotions, creams, moisturizers. No soaking, pools, hot tubs. Do not scrub over incision. 2. Weight-bear as tolerated with walker / cane until follow-up. 3. Ice and elevate when necessary. Do not exceed 20 minutes per hour with ice pack. 4. Utilize compression sleeve until seen at first follow up appointment. 5. Pain meds and anticoagulants per prescription. 6. Pain medication has potential to cause constipation. Increase oral fluid and fiber intake. Contact primary care provider if you have not had a bowel movement within 48 hours after discharge. 7. No anti-inflammatory medication until discussed at first post operative visit, this including Motrin, Aleve, Mobic, Diclofenac. 8. Follow up in office at 2 weeks postop with Kobi Davidson PA-C/Seymour Bethea PA-C 9. Follow up with your primary care doctor 7-10 days after discharge. 10. Contact [facility] with any questions, . Wound care instructions: 1. Ok to remove dressing as of 09/17/2022 2. Okay to shower directly over the incision after removal of dressing Medication instructions: 1. Patient does have stool softeners at home, he will begin these on 09/12/2022 Discharge Disposition: HOME WITH HOME HEALTH SERVICES
== END 2022-09-11 12:56 | disposition home health service (06) ==
LOC: OR 08:03 → 4SSUR 13:43 → OR 09-11 12:56
PROVIDERS: ATTEND Orthopaedic Surgery
DX: M16.11 Unilateral primary osteoarthritis, right hip (principal); G89.18 Other acute postprocedural pain; I25.2 Old myocardial infarction; I25.10 Atherosclerotic heart disease of native coronary artery without angina pectoris; J44.9 Chronic obstructive pulmonary disease, unspecified; F17.200 Nicotine dependence, unspecified, uncomplicated; Z79.82 Long term (current) use of aspirin; Z79.899 Other long term (current) drug therapy
CPT/HCPCS: 27130; 94760; 97161; 64447; 86900; 86901; 85025; 86850; 73501; C1776; S4990; J2250; J1100; J0690 ×3; J2405; J1650; J3010; J2795; J2704; J1170; J2371

== ENCOUNTER 2022-09-19 10:26 | Emergency (ER) | payer OTHER ==
[2022-09-19 10:38] VITALS: TEMP 98
[2022-09-19] MEDS ORDERED: Acetaminophen-Codeine 300-30mg TAB PO STA (11:03)
--- NOTE | 2022-09-19 11:54 | XR ---
EXAMINATION TYPE: XR knee complete RT DATE OF EXAM: 09/19/2022 11:50 AM INDICATION: Patient age:Male; 72 years old; Reason for study: Pain after fall; [facility]. COMPARISON: None. TECHNIQUE: The Right knee(s) was examined in Frontal, lateral and oblique projections. FINDINGS: No evidence of any acute osseous pathology, soft tissue swelling, or joint effusion is no annemarie. Tricompartmental osteophyte formation involving the femoral condyles, tibial plateau and patella. Mi ld joint space narrowing. A fabella is present. There is atherosclerosis of the arterial vasculature. IMPRESSION: 1. No acute osseous pathology. 2. Mild tricompartmental osteoarthritic changes.
--- NOTE | 2022-09-19 11:57 | XR ---
EXAMINATION TYPE: XR tibia fibula RT DATE OF EXAM: 09/19/2022 11:50 AM INDICATION: Patient age:Male; 72 years old; Reason for study: Pain after fall; [facility]. COMPARISON: None TECHNIQUE: The right tibia/fibula was examined in AP and lateral projections. FINDINGS: No evidence of any acute osseous pathology, joint dislocation, or soft tissue swelling is n oted. IMPRESSION: No evidence of acute fracture.
--- NOTE | 2022-09-19 11:57 | XR ---
EXAMINATION TYPE: XR Hip Complete RT DATE OF EXAM: 09/19/2022 11:50 AM INDICATION: Patient age:Male; 72 years old; Reason for study: Pain after fall; [facility]. COMPARISON: 02/12/2022 TECHNIQUE: The right hip was examined in the frontal and lateral projections FINDINGS: Post arthroplasty changes, hardware is intact, alignment is appropriate. No evidence of fra cture. No evidence of any acute osseous pathology or joint dislocation. IMPRESSION: Hip arthroplasty with hardware intact and in appropriate alignment. No acute fracture.
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
[2022-09-19] MEDS ORDERED: ACET/COD 300 MG/30 MG STARTER PACK 6 TAB BTL PO STA (12:30)
[2022-09-19 12:54] VITALS: BP 122/63; PULSE 67; RESP 16
== END 2022-09-19 13:03 | disposition home or self-care (01) ==
LOC: EC 10:26
DX: S80.01XA Contusion of right knee, initial encounter (principal); M25.571 Pain in right ankle and joints of right foot; I25.2 Old myocardial infarction; F17.200 Nicotine dependence, unspecified, uncomplicated; Z79.82 Long term (current) use of aspirin; Z91.030 Bee allergy status; Z91.018 Allergy to other foods; W01.0XXA Fall on same level from slipping, tripping and stumbling without subsequent striking against object, initial encounter
CPT/HCPCS: 73502; 99283

== ENCOUNTER 2024-05-30 14:08 | Emergency (ER) | payer MEDICARE, OTHER ==
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
[2024-05-30] MEDS: ONDANSETRON 4 MG/2 ML VIAL IVP STA (15:07)
[2024-05-30] MEDS: KETOROLAC 15 MG/ML 1 ML VIAL IVP STA (15:07)
[2024-05-30] MEDS: SODIUM CHLORIDE 0.9% 1,000 ML IV STA (15:08)
[2024-05-30 15:19] LABS: Basophils % (A) 0 %; Eosinophils # (A) 0.1 k/uL (0-0.7); Eosinophils % (A) 1 %; HCT 36.6 % (39.0-53.0); HGB 11.8 gm/dL (13.0-17.5); Lymphocytes # (A) 0.9 k/uL (1.0-4.8); Lymphocytes % (A) 10 %; MCH 30.2 pg (25.0-35.0); MCHC 32.2 g/dL (31.0-37.0); MCV 93.9 fL (80.0-100.0); Mean Platelet Volume 8.1; Monocytes # (A) 0.3 k/uL (0-1.0); Monocytes % (A) 3 %; Neutrophils # (A) 7.5 k/uL (1.3-7.7); Neutrophils % (A) 85 %; Platelet Count 189 k/uL (150-450); RDW 14.6 % (11.5-15.5); WBC 8.8 k/uL (3.8-10.6)
[2024-05-30 15:24] LABS: ALT 12 U/L (4-49); AST 22 U/L (17-59); African American GFR (CKD) 72 (>60 ml/min/1.73 sqM); Albumin 4.4 g/dL (3.5-5.0); Alkaline Phosphatase 86 U/L (38-126); Anion Gap 12 mmol/L; Blood Urea Nitrogen 20 mg/dL (9-20); Calcium 9.7 mg/dL (8.4-10.2); Carbon Dioxide 22 mmol/L (22-30); Chloride 106 mmol/L (98-107); Glucose 147 mg/dL (74-99); Lipase 41 U/L (23-300); Non-African American GFR(CKD) 62 (>60 ml/min/1.73 sqM); Potassium 4.9 mmol/L (3.5-5.1); Sodium 140 mmol/L (137-145); Total Bilirubin 0.5 mg/dL (0.2-1.3); Total Protein 7.6 g/dL (6.3-8.2)
--- NOTE | 2024-05-30 16:04 | CT ---
EXAMINATION TYPE: CT abdomen pelvis wo con DATE OF EXAM: 05/30/2024 3:37 PM COMPARISON: CT abdomen 12/15/2020. CLINICAL INDICATION: Male, 74 years old with history of left flank pain, kidney stone suspected; left flank pain, kidney stone suspected TECHNIQUE: Axial CT abdomen pelvis wo con;Sagittal and coronal reformats were created on a separate workstation. Oral contrast used: without Oral Contrast (none if empty) CT DLP: 557.9 mGycm, Automated exposure control for dose reduction was used. FINDINGS: LOWER CHEST: Unremarkable ABDOMEN LIVER: Unremarkable GALLBLADDER AND BILE DUCTS: Unremarkable. PANCREAS: Unremarkable. SPLEEN: Unremarkable. ADRENAL GLANDS: Unremarkable. KIDNEYS AND URETERS: Distal 5 mm left ureter calculus (series 3 image 113) causing mild upstream hydr oureteronephrosis. There is left perinephric and left periureteral fat stranding/acute inflammatory c hanges. Additional punctate bilateral renal calculi. Numerous simple appearing bilateral renal cysts. No evidence of right-sided hydronephrosis. PELVIS BLADDER: No evidence for wall thickening or mass given limitations of exam. REPRODUCTIVE: Unremarkable. ABDOMEN & PELVIS STOMACH AND BOWEL: Stomach and duodenum are unremarkable. Small hiatal hernia. No evidence of bowel o bstruction. PERITONEUM/RETROPERITONEUM: No evidence of pneumoperitoneum or free fluid. VASCULATURE: Calcified of sclerotic disease and infrarenal abdominal aortic aneurysm measuring 3.3 x 3.7 cm. MUSCULOSKELETAL: No acute osseous abnormalities. Bilateral hip arthroplasty devices significantly ng iting evaluation of the pelvis. LYMPH NODES: No gross evidence for lymphadenopathy. SOFT TISSUE/ABDOMINAL WALL: Unremarkable IMPRESSION: 1. Distal 5 or left ureteral calculus causing mild upstream hydroureteronephrosis and associated inf lammatory changes. 2. Infrarenal abdominal aortic aneurysm measuring 3.3 x 3.7 cm. 3. Additional nonacute findings as above. [facility], , 05/30/2024 4:02 PM
[2024-05-30 17:04] LABS: Appearance,Urine Clear (Clear); Bilirubin,Urine Negative (Negative); Blood,Urine Large (Negative); Color,Urine Yellow; Glucose,Urine (UA) Negative (Negative); Ketones,Urine Negative (Negative); Leukocyte Esterase,Urine Negative (Negative); Mucus,Urine Rare /hpf; Nitrite,Urine Negative (Negative); Protein,Urine 1+ (Negative); RBC,Urine >182 /hpf (0-5); Squamous Epithelial Cell,Urine <1 /hpf (0-4); Urobilinogen,Urine <2.0 mg/dL (<2.0); WBC,Urine 4 /hpf (0-5)
[2024-05-30] MEDS: TAMSULOSIN 0.4 MG CAP.ER.24H PO STA (17:52)
[2024-05-30 18:23] VITALS: BP 150/49; PULSE 76; RESP 18; TEMP 97.9
== END 2024-05-30 18:23 | disposition home or self-care (01) ==
LOC: EC 14:08
DX: N13.2 Hydronephrosis with renal and ureteral calculous obstruction (principal); F17.200 Nicotine dependence, unspecified, uncomplicated; Z91.030 Bee allergy status; Z91.018 Allergy to other foods
CPT/HCPCS: 36415; 80053; 83605; 83690; 85025; 81001; 74176; 99284; 96374; 96375; 96361; J2405; J1885

== ENCOUNTER 2024-06-05 05:15 | Emergency (ER) | payer OTHER ==
[2024-06-05] MEDS: KETOROLAC 15 MG/ML 1 ML VIAL IVP STA (06:19)
[2024-06-05] MEDS: SODIUM CHLORIDE 0.9% 1,000 ML IV ONE ×2 (06:19→07:32)
[2024-06-05] MEDS: MORPHINE SULFATE 4 MG/ML SYRINGE IVP STA (06:20)
[2024-06-05 06:26] VITALS: RESP 18
[2024-06-05 06:53] LABS: Basophils # (A) 0.04 10*3/uL (0.00-0.10); Basophils % (A) 0.3 %; Eosinophils # (A) 0.09 10*3/uL (0.04-0.35); Eosinophils % (A) 0.8 %; HCT 34.1 % (39.6-50.0); HGB 11.5 g/dL (13.0-17.0); Lymphocytes # (A) 1.66 10*3/uL (0.90-5.00); Lymphocytes % (A) 14.2 %; MCH 30.4 pg (27.0-32.0); MCHC 33.7 g/dL (32.0-37.0); MCV 90.2 fL (80.0-97.0); Mean Platelet Volume 10.1 fL (9.5-12.2); Monocytes # (A) 1.05 10*3/uL (0.20-1.00); Neutrophils # (A) 8.83 10*3/uL (1.80-7.70); Neutrophils % (A) 75.2 %; Platelet Count 238 10*3/uL (140-440); RBC 3.78 10*6/uL (4.40-5.60); RDW 14.7 % (11.5-14.5); WBC 11.73 10*3/uL (4.50-10.00)
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
--- NOTE | 2024-06-05 07:19 | XR ---
EXAMINATION TYPE: XR KUB DATE OF EXAM: 06/05/2024 6:48 AM COMPARISON: None. CLINICAL INDICATION: Male, 74 years old with history of Abdominal pain, recent kidney stone, TECHNIQUE: XR KUB view(s) obtained. FINDINGS: There is a normal bowel gas pattern. Psoas margins are normal. No organomegaly is present. Bilateral hip prostheses present. Degenerative disc changes present L4-5 IMPRESSION: 1. No acute changes [facility], , 06/05/2024 7:17 AM
[2024-06-05 07:27] LABS: ALT 12 U/L (4-49); AST 19 U/L (17-59); African American GFR (CKD) 37 (>60 ml/min/1.73 sqM); Albumin 3.6 g/dL (3.5-5.0); Alkaline Phosphatase 90 U/L (38-126); Anion Gap 17 mmol/L; Blood Urea Nitrogen 31 mg/dL (9-20); Carbon Dioxide 17 mmol/L (22-30); Chloride 102 mmol/L (98-107); Glucose 150 mg/dL (74-99); Lipase 49 U/L (23-300); Non-African American GFR(CKD) 32 (>60 ml/min/1.73 sqM); Potassium 4.4 mmol/L (3.5-5.1); Sodium 136 mmol/L (137-145); Total Bilirubin 0.8 mg/dL (0.2-1.3); Total Protein 6.9 g/dL (6.3-8.2)
[2024-06-05 09:27] LABS: Appearance,Urine Clear (Clear); Bilirubin,Urine Negative (Negative); Blood,Urine Small (Negative); Color,Urine Yellow; Glucose,Urine (UA) Negative (Negative); Ketones,Urine 2+ (Negative); Leukocyte Esterase,Urine Negative (Negative); Mucus,Urine Rare /hpf; Nitrite,Urine Negative (Negative); PH, Urine 5.5 (5.0-8.0); Protein,Urine 1+ (Negative); RBC,Urine 8 /hpf (0-5); Specific Gravity,Urine 1.028 (1.001-1.035); Squamous Epithelial Cell,Urine <1 /hpf (0-4); Urobilinogen,Urine <2.0 mg/dL (<2.0); WBC,Urine 5 /hpf (0-5)
[2024-06-05 10:20] VITALS: BP 166/94; PULSE 77; TEMP 99.1
== END 2024-06-05 10:23 | disposition home or self-care (01) ==
LOC: EC 05:15
DX: N20.2 Calculus of kidney with calculus of ureter (principal); E86.0 Dehydration; F17.200 Nicotine dependence, unspecified, uncomplicated; Z91.030 Bee allergy status; Z91.018 Allergy to other foods
CPT/HCPCS: 36415; 80053; 83605; 83690; 85025; 81001; 74018; 99285; 96374; 96375; 96361; 99406; J2270; J1885

== ENCOUNTER 2024-06-19 11:36 | Inpatient (IN) | payer OTHER, MEDICARE ==
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
[2024-06-19] MEDS: ONDANSETRON 4 MG/2 ML VIAL IVP STA (12:38)
[2024-06-19] MEDS: HYDROmorphone 1 MG/ML 1 ML SYRINGE IVP STA (12:38)
[2024-06-19] MEDS: LACTATED RINGERS 1,000 ML IV ONE ×2 (12:39→22:40)
[2024-06-19 13:00] LABS: Basophils # (A) 0.06 10*3/uL (0.00-0.10); Basophils % (A) 0.6 %; Eosinophils # (A) 0.21 10*3/uL (0.04-0.35); Eosinophils % (A) 1.9 %; HCT 30.1 % (39.6-50.0); Lymphocytes # (A) 2.75 10*3/uL (0.90-5.00); Lymphocytes % (A) 25.4 %; MCH 30.3 pg (27.0-32.0); MCHC 32.9 g/dL (32.0-37.0); Monocytes # (A) 0.48 10*3/uL (0.20-1.00); Monocytes % (A) 4.4 %; Neutrophils # (A) 7.27 10*3/uL (1.80-7.70); Neutrophils % (A) 67.3 %; Platelet Count 376 10*3/uL (140-440); RBC 3.27 10*6/uL (4.40-5.60); RDW 14.8 % (11.5-14.5); WBC 10.81 10*3/uL (4.50-10.00)
[2024-06-19 13:02] LABS: HGB 9.9 g/dL (13.0-17.0)
[2024-06-19 13:06] LABS: Partial Thromboplastin Time 24.9 sec (22.0-30.0); Prothrombin Time 11.2 sec (10.0-12.5)
[2024-06-19 13:09] LABS: ALT 11 U/L (4-49); AST 17 U/L (17-59); African American GFR (CKD) 54 (>60 ml/min/1.73 sqM); Albumin 3.8 g/dL (3.5-5.0); Alkaline Phosphatase 93 U/L (38-126); Amylase 50 U/L (30-110); Anion Gap 14 mmol/L; Blood Urea Nitrogen 24 mg/dL (9-20); Carbon Dioxide 20 mmol/L (22-30); Chloride 109 mmol/L (98-107); Glucose 138 mg/dL (74-99); Lipase 51 U/L (23-300); Non-African American GFR(CKD) 46 (>60 ml/min/1.73 sqM); Potassium 4.2 mmol/L (3.5-5.1); Sodium 143 mmol/L (137-145); Total Bilirubin 0.4 mg/dL (0.2-1.3); Total Protein 7.5 g/dL (6.3-8.2)
[2024-06-19 14:37] LABS: Appearance,Urine Clear (Clear); Bacteria,Urine Rare /hpf; Bilirubin,Urine Negative (Negative); Blood,Urine Trace (Negative); Color,Urine Colorless; Glucose,Urine (UA) Negative (Negative); Ketones,Urine Negative (Negative); Leukocyte Esterase,Urine Negative (Negative); Mucus,Urine Occasional /hpf; Nitrite,Urine Negative (Negative); PH, Urine 5.5 (5.0-8.0); Protein,Urine Trace (Negative); RBC,Urine 2 /hpf (0-5); Specific Gravity,Urine 1.025 (1.001-1.035); Urobilinogen,Urine <2.0 mg/dL (<2.0); WBC,Urine 7 /hpf (0-5)
--- NOTE | 2024-06-19 14:59 | CT ---
EXAMINATION TYPE: CT abdomen pelvis w con DATE OF EXAM: 06/19/2024 2:35 PM COMPARISON: 05/30/2024. CLINICAL INDICATION: Male, 74 years old with history of Generalized abdominal pain; abdominal pain TECHNIQUE: Axial CT abdomen pelvis w con;Sagittal and coronal reformats were created on a separate w orkstation. Contrast used:80mL mL of Isovue 300 with IV Contrast, (none if empty) Oral contrast used: without Oral Contrast (none if empty) CT DLP: 772.9 mGycm, Automated exposure control for dose reduction was used. FINDINGS: LOWER CHEST: Unremarkable ABDOMEN LIVER: Unremarkable GALLBLADDER AND BILE DUCTS: Unremarkable. PANCREAS: Unremarkable. SPLEEN: Unremarkable. ADRENAL GLANDS: Unremarkable. KIDNEYS AND URETERS: No evidence of hydronephrosis or obstructing renal calculus. The ureters are unr emarkable. Simple bilateral renal cysts measuring up to 46 mm in the right and 14 mm and left. Ollie tional parapelvic left renal cysts with fat stranding of the left renal sinus. Resolution of prior le ft Obstructing ureteral calculus at the pelvic inlet. Evaluation more inferiorly limited by streak ar tifact. PELVIS Evaluation of the pelvis is limited by streak artifact. BLADDER: No evidence for wall thickening or mass given limitations of exam. REPRODUCTIVE: Unremarkable. ABDOMEN & PELVIS STOMACH AND BOWEL: No evidence of bowel obstruction. There is wall thickening of the duodenal bulb/se cond portion with some hyperemia of the mucosa. No free air identified organizing fluid collection. T here is fat stranding changes around this area series 201 image 32 small hiatal hernia present. PERITONEUM/RETROPERITONEUM: No evidence of pneumoperitoneum or free fluid. VASCULATURE: Infrarenal abdominal aortic aneurysm with mural thrombus measuring up to 36 mm. Findings similar to MUSCULOSKELETAL: No acute osseous abnormalities hip arthroplasties with streak artifact limits evalua tion the pelvis. Mild degeneration changes throughout spine worse at L4-L5 with disc space narrowing and osteophyte formation. LYMPH NODES: No gross evidence for lymphadenopathy. SOFT TISSUE/ABDOMINAL WALL: Bilateral fat-containing inguinal hernias. IMPRESSION: 1. New from 05/30/2024, Wall thickening of the duodenum bulb/second portion of the duodenum with fat s tranding changes correlate for duodenal ulcer. Correlate with history. Gastrointestinal Dr. che del rosario for evaluation for upper endoscopy recommended. Cynthia with patient's history. 2. Resolution of prior shadowing calculus with persistent Haziness to the left perirenal region neftali elated with urinalysis to exclude ascending infection. 3. Bilateral simple appearing renal cysts. No follow-up recommended. 4. Stable infrarenal abdominal aortic aneurysm up to 36 mm. 5. Small hiatal hernia. [facility], , 06/19/2024 2:56 PM
[2024-06-19] MEDS: PANTOPRAZOLE 40 MG/10 ML VIAL IVP STA (16:30)
--- NOTE | 2024-06-19 17:05 | US ---
EXAMINATION TYPE: US gallbladder DATE OF EXAM: 06/19/2024 COMPARISON: CLINICAL INDICATION: Male, 74 years old with history of RUQ pain; Pain. Hx renal cysts. TECHNIQUE: Grayscale and color Doppler imaging of the right upper quadrant was performed. FINDINGS: EXAM MEASUREMENTS: Liver Length: 12.5 cm Gallbladder Wall: 0.1 cm CBD: 0.7 cm Right Kidney: 10.9 x 4.7 x 6.0 cm UNDERTAKER ASSISTANT NOTES:Suboptimal due to gas Pancreas: Body and tail obscured by overlying bowel gas. Liver: wnl Gallbladder: Enlarged in size. Sludge seen. No wall thickening. Evidence for sonographic Summers's sign: neg CBD: wnl Right Kidney: Multiple cysts seen with largest lateral superior = 4.2 x 4.1 x 4.2 cm IMPRESSION: 1. Gallbladder hydrops with gallbladder sludge. No evidence for gallbladder wall thickening. Correlat e clinically. [facility], , 06/19/2024 5:03 PM
[2024-06-19] MEDS ORDERED: ONDANSETRON 4 MG/2 ML VIAL IVP PRN (17:58)
[2024-06-19] MEDS ORDERED: HYDROmorphone 0.5 MG/0.5 ML SYRINGE IVP PRN (17:58)
[2024-06-19] MEDS ORDERED: NALOXONE 0.4 MG/ML 1 ML VIAL IV PRN (17:58)
[2024-06-19] MEDS ORDERED: HYDROmorphone 2 MG/ML 1 ML SYRINGE IVP PRN (17:58)
[2024-06-19] MEDS: PIPERACILLIN-TAZOBACTAM 3.375 GM in SODIUM CHLORIDE 0.9% 100 ML IVPB STA (18:28)
[2024-06-19] MEDS: LACTATED RINGERS 1,000 ML IV SCH (18:29)
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
[2024-06-19] MEDS: LIDOCAINE 1%-EPI 1:100,000 20 ML VIAL SQ ONE ×2 (22:39→22:56)
[2024-06-19] MEDS ORDERED: PROPOFOL 10 MG/ML 20 ML VIAL IV ONE (22:40)
[2024-06-19] MEDS ORDERED: ROCURONIUM 10 MG/ML (5 ML VIAL) IV ONE (22:40)
[2024-06-19] MEDS ORDERED: LIDOCAINE 4% LTA KIT (4 ML) TOPICAL ONE (22:40)
[2024-06-19] MEDS ORDERED: NEOSTIGMINE 1 MG/ML 10 ML VIAL ONE (22:40)
[2024-06-19] MEDS ORDERED: SUCCINYLCHOLINE CHLORIDE 200 MG/10 ML VIAL IV ONE (22:40)
[2024-06-19] MEDS ORDERED: KETOROLAC 15 MG/ML 1 ML VIAL ONE (22:40)
[2024-06-19] MEDS ORDERED: GLYCOPYRROLATE 0.2 MG/ML 2 ML VIAL ONE (22:40)
[2024-06-19] MEDS ORDERED: LIDOCAINE 1% INJ 10MG/ML (20 ML MDV) ONE (22:40)
[2024-06-19] MEDS ORDERED: fentaNYL (PF) 50 MCG/ML 2 ML AMP ONE (22:40)
--- NOTE | 2024-06-19 23:11 | P.OP ---
Date of Procedure: 06/19/24 Preoperative Diagnosis: cholecystitis Postoperative Diagnosis: cholecystitis Procedure(s) Performed: laparoscopic cholecystectomy Anesthesia: TRACEY Surgeon: Alin Patel Estimated Blood Loss (ml): 5 Pathology: other (gallbladder) Condition: stable Disposition: PACU Description of Procedure: The patient was placed on the operating table. The patient received a general endotracheal tube anesthesia. The patients abdomen was prepped and draped in the usual sterile fashion. Through an infraumbilical stab incision, the fascia of the anterior abdominal wall was grasped with a pair of Kochers and then the Veress needle was placed in the peritoneal cavity. Position of the Veress needle was confirmed with positive drop test. The abdomen was then insufflated. After adequate insufflation, the 10 mm trocar was placed in the peritoneal cavity. Following this the laparoscope was placed in the peritoneal cavity. The patient was placed in the head-up, right side up position and then a 5 mm trocar was placed in the right lateral and right subcostal position under direct visualization. A 8 mm trocar was placed in the epigastric position. The gallbladder was grasped in the fundus and infundibulum. Traction on the gallbladder was placed in the lateral and the cephalad positions. The triangle of Calot was visualized.. The cystic duct was bluntly dissected until the union of the cystic duct and common bile duct was seen. A critical view of safety was achieved. The cystic duct was then divided and sealed with the Harmonic scissors. A PDS Endoloop was then placed throughout the cystic duct stump. The cystic artery divided and sealed with the Harmonic scissors. The gallbladder was then removed from the liver bed using Harmonic scissors. The gallbladder was then extracted through the epigastric port site. Operative field was checked for any bleeding spots and Harmonic scissors was used to coagulate the liver bed. The abdomen was irrigated. The trocars were removed. The skin was closed using interrupted 3-0 Vicryl suture. Dermabond dressing were applied. The patient tolerated the procedure well.
[2024-06-20] MEDS: PIPERACILLIN-TAZOBACTAM 3.375 GM in SODIUM CHLORIDE 0.9% 100 ML IVPB SCH (00:02)
[2024-06-20] MEDS: cefTRIAXone 2 GM in DEXTROSE 5% IN WATER 50 ML IVPB ONE (03:35)
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
[2024-06-20] MEDS: metroNIDAZOLE-NS PMX 500 MG in SALINE 1 100ML.BAG IVPB SCH (04:10)
[2024-06-20 06:30] LABS: Basophils # (A) 0.05 10*3/uL (0.00-0.10); Basophils % (A) 0.6 %; Eosinophils # (A) 0.13 10*3/uL (0.04-0.35); Eosinophils % (A) 1.7 %; HCT 24.9 % (39.6-50.0); Lymphocytes # (A) 2.01 10*3/uL (0.90-5.00); Lymphocytes % (A) 25.6 %; MCH 29.7 pg (27.0-32.0); MCHC 31.3 g/dL (32.0-37.0); MCV 94.7 fL (80.0-97.0); Mean Platelet Volume 10.1 fL (9.5-12.2); Monocytes # (A) 0.33 10*3/uL (0.20-1.00); Monocytes % (A) 4.2 %; Neutrophils % (A) 67.6 %; Platelet Count 298 10*3/uL (140-440); RBC 2.63 10*6/uL (4.40-5.60); RDW 15.1 % (11.5-14.5); WBC 7.84 10*3/uL (4.50-10.00)
[2024-06-20 06:53] LABS: African American GFR (CKD) 74 (>60 ml/min/1.73 sqM); Anion Gap 10 mmol/L; Blood Urea Nitrogen 20 mg/dL (9-20); Calcium 8.2 mg/dL (8.4-10.2); Carbon Dioxide 21 mmol/L (22-30); Chloride 111 mmol/L (98-107); Glucose 98 mg/dL (74-99); Non-African American GFR(CKD) 64 (>60 ml/min/1.73 sqM); Potassium 4.1 mmol/L (3.5-5.1); Sodium 142 mmol/L (137-145)
[2024-06-20 06:59] LABS: HGB 7.8 g/dL (13.0-17.0)
[2024-06-20 09:48] LABS: Reticulocyte % 1.94 % (0.10-1.80)
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
[2024-06-20] MEDS: ENOXAPARIN 40 MG/0.4 ML SYRINGE SQ SCH (10:59)
[2024-06-20 12:55] LABS: Basophils # (A) 0.05 10*3/uL (0.00-0.10); Basophils % (A) 0.6 %; Eosinophils # (A) 0.17 10*3/uL (0.04-0.35); Eosinophils % (A) 2.1 %; HCT 25.4 % (39.6-50.0); HGB 8.2 g/dL (13.0-17.0); Lymphocytes # (A) 2.66 10*3/uL (0.90-5.00); Lymphocytes % (A) 33.5 %; MCH 30.4 pg (27.0-32.0); MCHC 32.3 g/dL (32.0-37.0); MCV 94.1 fL (80.0-97.0); Mean Platelet Volume 9.6 fL (9.5-12.2); Monocytes # (A) 0.44 10*3/uL (0.20-1.00); Monocytes % (A) 5.5 %; Neutrophils # (A) 4.59 10*3/uL (1.80-7.70); Neutrophils % (A) 57.9 %; Platelet Count 283 10*3/uL (140-440); RDW 15.1 % (11.5-14.5); WBC 7.94 10*3/uL (4.50-10.00)
--- NOTE | 2024-06-20 13:48 | P.PN ---
Subjective Progress Note Date: 06/20/24 Hospital Course: Patient is a 74-year-old male with CAD, PTSD and current everyday smoker here for evaluation of abdominal pain. He was last seen in May 30 was diagnosed with a left distal ureteral calculus causing mild upstream hydro ureter nephrosis and was given Flomax and advised to follow-up with urology and was discharged from the ED. patient reported that despite being seen, his abdominal pain persisted and characterizes it as hard colicky pain in his right upper tucker drant that is worse after meals. He denied nausea, vomiting, jaundice, fever, chills, diarrhea, constipation, hematochezia or hematemesis. On admission: Vitals: 97.4 Fahrenheit, NC 99, RR 18, BP 172/80, O2 saturation 99% on room air Labs: WBC 10.8, hemoglobin 9.9, MCV 92, bicarb 20, BUN 24, creatinine 1.45, glucose 138, lactic acid 2.6, lipase 51 amylase 50, AST 17, ALT 11, alk phos 93. Coagulation panel normal levels. Urinalysis shows trace protein, trace blood, Negative nitrites, negative leukocyte esterase . Imaging: Gallbladder ultrasound showed gallbladder hydrops with gallbladder sl udge with no evidence for wall thickening. Abdominal CT new wall thickening of the duodenal bulb/second portion of duodenum with fat stranding changes to correlate for duodenal ulcer. Resolution of calculus at the rest ureter with persistent haziness to the left perirenal region, bilateral simple appearing renal cysts, known infrarenal abdominal aortic aneurysm and small hiatal hernia. Subjective: Patient seen and examined at bedside. No acute events overnight. This morning patient was informed of Hgb that was trending down. Patient denies any recent history of bloody bowel movements or hematemesis. Denies any abdominal pain prior to his acute cholecystitis. Was unaware that he had ulcer. However this morning he feels much better after the surgery and has no current complaints. Discussed with patient and need for follow up given low blood count and ulcer would benefit from scope. Pertinent positives and negatives as discussed above, a complete review of systems was performed and all other systems are negative. Vitals: Signs Reviewed Physical Exam: General: nontoxic, no distress, appears at stated age Derm: warm, dry, intact Head: atraumatic, normocephalic, symmetric Eyes: EOMI, anicteric sclera Mouth: no lip lesion, mucus membranes moist Cardiovascular: S1 S2 reg, no murmur, rubs, or gallops Lungs: CTA bilateral, no rhonchi, no rales, no accessory muscle use Abdominal: soft, non-tender to palpataion, no appreciable organomegaly, laproscopic surgical excisions clean and intact Extremities: no gross muscle atrophy, no edema, no contractures Neuro: Alert, Oriented, CNII-XII grossly intact, gait normal Psych: well appearing, appropriate affect Data Received Today: Pertinent Labs: Hgb 7.8 => 8.2, bicarb 21 Imaging: N/A Assessment and Plan: 74-year-old male with CAD, nicotine abuse here for evaluation of abdominal pain. Imaging and clinical presentation correlate for acute cholecystitis. The patient is admitted with an anticipated less than 2 midnight stay for evaluation of acute cholecystitis. Active: #. Acute cholecystitis status post laparoscopic cholecystectomy postop day 1 #. Lactic acidosis, resolved - Gallbladder ultrasound showed gallbladder hydrops with gallbladder sludge with no evidence for wall thickening. - Abdominal CT new wall thickening of the duodenal bulb/second portion of duodenum with fat stranding - Diet will be upgraded from n.p.o. to regular diet, will be able to likely discharge today if he can tolerate diet - Antibiotics have been discontinued - LR at 50 cc an hour - Continue with pain control with Dilaudid IV General Surgery following #. Acute blood loss anemia #. Duodenal ulcer Hgb has been trending down from 9.9 => 7.8, Hgb outpatient was 11.5, concern for bleeding due to duodenal ulcer seen on CT Patient denies any bloody bowel movements or hematemesis. He also denies any abdominal pain prior to this episode of acute cholecystitis We did a repeat CBC at 1 PM and it showed to be 8.2. Encourage patient to follow-up with GI outpatient and his PCP, and to receive repeat CBC within 3 to 5 days. Patient verbalized understanding. #. Bilateral simple appearing renal cysts #. Known infrarenal abdominal aortic aneurysm and small hiatal hernia - Abdominal CT showed bilateral simple appearing renal cysts, known infrarenal abdominal aortic aneurysm 3.6 cm and small hiatal hernia. Size of aortic anyeursm not changed since last seen on 05/30 - Follow-up outpatient #. EVER, resolved - LR at 50 cc an hour - CT showed renal perpelvic fat stranding - Urology note reviewed, advised to increase oral fluid intake to reduce likelihood of future renal stone #. Normocytic anemia - Hemoglobin 9.9 on admission - Order iron studies and reticulocyte count - Repeat CBC in the morning Chronic Conditions: #. CAD -Continue ASA F: IV fluids N: Regular diet at breakfast A: Ambulate as needed DVT ppx: Lovenox 40 mg subcu daily GI ppx: Protonix 40 mg p.o. daily Code status: Full code Anticipated discharge place: Home Anticipated discharge time: Likely today if patient can tolerate diet Camila Florian MD PGY-1 IM Dictation was produced using [employer] dictation software. please excuse any grammatical, word or spelling errors. I have seen and evaluated the patient today. Discussed with the resident and agree with the residents finding and plan as documented in the resident's note. Changes highlighted in blue font. Objective - Vital Signs Vital signs: Vital Signs Temp 97.9 F 06/20/24 07:08 Pulse 63 06/20/24 07:08 Resp 18 06/20/24 07:08 BP 132/66 06/20/24 07:08 Pulse Ox 98 06/20/24 07:08 FiO2 Intake & Output 06/19/24 06/20/24 06/20/24 18:59 06:59 18:59 Intake Total 1070 Output Total 5 Balance 1065 Weight 68.039 kg 68.039 kg Intake: IV 800 Oral 270 Output: Estimated Blood Loss 5 Other: Voiding Method Urinal # Voids 2 - Labs CBC & Chem 7: 06/20/24 12:38 06/20/24 04:57 Labs: Abnormal Lab Results - Last 24 Hours (Table) 06/19/24 06/19/24 06/19/24 Range/Units 12:00 12:29 12:29 WBC 10.81 H (4.50-10.00) 10*3/uL RBC 3.27 L (4.40-5.60) 10*6/uL Hgb 9.9 L D (13.0-17.0) g/dL Hct 30.1 L (39.6-50.0) % MCHC (32.0-37.0) g/dL RDW (11.5-14.5) % Chloride 109 H (98-107) mmol/L Carbon Dioxide 20 L (22-30) mmol/L BUN 24 H (9-20) mg/dL Creatinine 1.45 H (0.66-1.25) mg/dL Glucose 138 H (74-99) mg/dL Plasma Lactic Acid Gadiel (0.7-2.0) mmol/L Calcium (8.4-10.2) mg/dL Urine Protein Trace H (Negative) Urine Blood Trace H (Negative) Urine WBC 7 H (0-5) /hpf Urine Bacteria Rare H (None) /hpf Urine Mucus Occasional H (None) /hpf 06/19/24 06/20/24 06/20/24 Range/Units 12:29 04:57 04:57 WBC (4.50-10.00) 10*3/uL RBC 2.63 L (4.40-5.60) 10*6/uL Hgb 7.8 L D (13.0-17.0) g/dL Hct 24.9 L (39.6-50.0) % MCHC 31.3 L (32.0-37.0) g/dL RDW 15.1 H (11.5-14.5) % Chloride 111 H (98-107) mmol/L Carbon Dioxide 21 L (22-30) mmol/L BUN (9-20) mg/dL Creatinine (0.66-1.25) mg/dL Glucose (74-99) mg/dL Plasma Lactic Acid Gadiel 2.6 H* (0.7-2.0) mmol/L Calcium 8.2 L (8.4-10.2) mg/dL Urine Protein (Negative) Urine Blood (Negative) Urine WBC (0-5) /hpf Urine Bacteria (None) /hpf Urine Mucus (None) /hpf
[2024-06-20 14:29] LABS: % Iron Saturation 20.96 (15.00-50.00); Iron 35 UG/DL (65-175); Total Iron Binding Capacity 167 UG/DL (228-460)
[2024-06-20] MEDS: PANTOPRAZOLE 40 MG TABLET PO SCH (14:50)
--- NOTE | 2024-06-20 16:54 | P.PN ---
Subjective Progress Note Date: 06/20/24 The patient is postoperative day 0 from laparoscopic cholecystectomy for acute cholecystitis. He appears to be doing well. He still has some incisional pain. On exam vital signs appear stable. Abdomen is soft incision sites are clean dry intact. Patient will continue receive supportive care. Anticipate discharge home tomorrow. Objective - Vital Signs Vital signs: Vital Signs Temp 98.2 F 06/20/24 14:00 Pulse 65 06/20/24 14:00 Resp 18 06/20/24 14:00 BP 142/72 06/20/24 14:00 Pulse Ox 94 L 06/20/24 14:00 FiO2 Intake & Output 06/19/24 06/20/24 06/20/24 18:59 06:59 18:59 Intake Total 1070 Output Total 5 Balance 1065 Weight 68.039 kg 68.039 kg Intake: IV 800 Oral 270 Output: Estimated Blood Loss 5 Other: Voiding Method Urinal # Voids 2 - Labs CBC & Chem 7: 06/20/24 12:38 06/20/24 04:57 Labs: Abnormal Lab Results - Last 24 Hours (Table) 06/20/24 06/20/24 06/20/24 Range/Units 04:57 04:57 04:57 RBC (4.40-5.60) 10*6/uL Hgb (13.0-17.0) g/dL Hct (39.6-50.0) % MCHC (32.0-37.0) g/dL RDW (11.5-14.5) % Retic Count 1.94 H (0.10-1.80) % Chloride 111 H (98-107) mmol/L Carbon Dioxide 21 L (22-30) mmol/L Calcium 8.2 L (8.4-10.2) mg/dL Iron 35 L (65-175) UG/DL TIBC 167 L (228-460) UG/DL Transferrin 119.0 L 116.0 L (204.0-354.0) mg/dL 06/20/24 06/20/24 Range/Units 04:57 12:38 RBC 2.63 L 2.70 L (4.40-5.60) 10*6/uL Hgb 7.8 L D 8.2 L (13.0-17.0) g/dL Hct 24.9 L 25.4 L (39.6-50.0) % MCHC 31.3 L (32.0-37.0) g/dL RDW 15.1 H 15.1 H (11.5-14.5) % Retic Count (0.10-1.80) % Chloride (98-107) mmol/L Carbon Dioxide (22-30) mmol/L Calcium (8.4-10.2) mg/dL Iron (65-175) UG/DL TIBC (228-460) UG/DL Transferrin (204.0-354.0) mg/dL
[2024-06-20] MEDS: NICOTINE 21MG/24HR PATCH TRANSDERM SCH (20:27)
[2024-06-20] MEDS: ACETAMINOPHEN TAB 325 MG TAB PO PRN (20:28)
[2024-06-20] MEDS: ALPRAZolam 0.25 MG TAB PO STA (22:17)
[2024-06-21 05:25] LABS: Basophils # (A) 0.05 10*3/uL (0.00-0.10); Basophils % (A) 0.8 %; Eosinophils # (A) 0.22 10*3/uL (0.04-0.35); Eosinophils % (A) 3.4 %; HCT 26.3 % (39.6-50.0); HGB 8.4 g/dL (13.0-17.0); Lymphocytes # (A) 2.61 10*3/uL (0.90-5.00); MCH 29.9 pg (27.0-32.0); MCHC 31.9 g/dL (32.0-37.0); MCV 93.6 fL (80.0-97.0); Mean Platelet Volume 9.4 fL (9.5-12.2); Monocytes # (A) 0.42 10*3/uL (0.20-1.00); Monocytes % (A) 6.4 %; Neutrophils # (A) 3.21 10*3/uL (1.80-7.70); Neutrophils % (A) 49.1 %; Platelet Count 273 10*3/uL (140-440); RBC 2.81 10*6/uL (4.40-5.60); RDW 15.1 % (11.5-14.5); WBC 6.53 10*3/uL (4.50-10.00)
[2024-06-21 05:39] LABS: African American GFR (CKD) 81 (>60 ml/min/1.73 sqM); Anion Gap 10 mmol/L; Blood Urea Nitrogen 18 mg/dL (9-20); Calcium 8.5 mg/dL (8.4-10.2); Carbon Dioxide 23 mmol/L (22-30); Chloride 108 mmol/L (98-107); Glucose 97 mg/dL (74-99); Magnesium 2.1 mg/dL (1.6-2.3); Non-African American GFR(CKD) 70 (>60 ml/min/1.73 sqM); Potassium 3.6 mmol/L (3.5-5.1); Sodium 141 mmol/L (137-145)
[2024-06-21 08:35] VITALS: BP 151/72; PULSE 57; RESP 16; TEMP 98.2
--- NOTE | 2024-06-21 10:26 | P.PN ---
Subjective Progress Note Date: 06/21/24 The patient is doing well. He has minimal complaints of pain. He wants to go home. On exam vital signs appear stable. Abdomen is soft incision sites are clean dry intact Status post laparoscopic cholecystectomy for acute cholecystitis. Patient stable for discharge. He will follow-up in the office next week. Objective - Vital Signs Vital signs: Vital Signs Temp 98.2 F 06/21/24 08:00 Pulse 57 L 06/21/24 08:00 Resp 16 06/21/24 08:00 BP 151/72 06/21/24 08:00 Pulse Ox 99 06/21/24 08:00 FiO2 Intake & Output 06/20/24 06/21/24 06/21/24 18:59 06:59 18:59 Output Total 550 Balance -550 Output: Urine 550 Other: Voiding Method Urinal # Voids 3 3 # Bowel Movements 1 - Labs CBC & Chem 7: 06/21/24 05:07 06/21/24 05:07 Labs: Abnormal Lab Results - Last 24 Hours (Table) 06/20/24 06/20/24 06/20/24 Range/Units 04:57 04:57 12:38 RBC 2.70 L (4.40-5.60) 10*6/uL Hgb 8.2 L (13.0-17.0) g/dL Hct 25.4 L (39.6-50.0) % MCHC (32.0-37.0) g/dL RDW 15.1 H (11.5-14.5) % MPV (9.5-12.2) fL Chloride (98-107) mmol/L Iron 35 L (65-175) UG/DL TIBC 167 L (228-460) UG/DL Transferrin 119.0 L 116.0 L (204.0-354.0) mg/dL 06/21/24 06/21/24 Range/Units 05:07 05:07 RBC 2.81 L (4.40-5.60) 10*6/uL Hgb 8.4 L (13.0-17.0) g/dL Hct 26.3 L (39.6-50.0) % MCHC 31.9 L (32.0-37.0) g/dL RDW 15.1 H (11.5-14.5) % MPV 9.4 L (9.5-12.2) fL Chloride 108 H (98-107) mmol/L Iron (65-175) UG/DL TIBC (228-460) UG/DL Transferrin (204.0-354.0) mg/dL
--- NOTE | 2024-06-21 15:15 | P.DS ---
Providers Date of admission: 06/19/24 18:02 Expected date of discharge: 06/21/24 Attending physician: Jayy Brewer Consults: 06/19/24 17:58 Consult Physician Routine Consulting Provider: Steven Guillaume Consult Reason/Comments: Left renal peripelvic fat stranding, recent obstructing renal calculus Do you want consulting provider notified?: Yes Consult Physician Routine Consulting Provider: Alin Patel Consult Reason/Comments: Gallbladder hydrops, acute cholecystitis Do you want consulting provider notified?: Already Contacted Primary care physician: Marbin Goncalves Hospital Course: Discharge Diagnosis: Acute cholecystitis status post laparoscopic cholecystectomy Duodenal ulcer Acute blood loss anemia Lactic acidosis Infrarenal abdominal aortic aneurysm Acute kidney injury Melanocytic anemia Coronary artery disease Hospital Course: 74-year-old with CAD, PTSD, and tobacco abuse admitted with acute abdominal pain. Underwent CT abdomen and pelvis which demonstrated thickening of the duodenal bulb and the second portion of the duodenum with fat stranding changes concerning for duodenal ulcer. Subsequently underwent gallbladder ultrasound which showed gallbladder hydrops. Was taken to the OR by general surgery on 06/20 and underwent laparoscopic appendectomy. Tolerated the procedure well. Hemoglobin took an acute drop initially but then stabilized. Additionally had acute kidney injury on admission which resolved with IV fluids. Follow up: Dr. Patel in 1 week, Dr. Parr in 1 week for possible endoscopy, Brittni Barragan at [facility] in 1 week. Would benefit from upper endoscopy for visualization of possible duodenal ulcer. Patient and family made aware. Also made aware of low hemoglobin levels. Recommend repeat CBC in 1 week. Patient seen and examined at bedside. Doing well. No complaints. Tolerated diet. All questions answered Vital signs reviewed and stable. General: Nontoxic, no distress, appears at stated age Cardiovascular: S1S2 reg, no murmur, positive posterior tibial pulse bilateral, Lungs: CTA bilateral, no rhonchi, no rales, no accessory muscle use Abdominal: Soft, nontender to palpation, no guarding, no appreciable organomegaly Ext: No gross muscle atrophy, no edema b/l lower extremities, no contractures Neuro: CN II-XI grossly intact, no focal neuro deficits Psych: Alert, oriented, appropriate affect A total of 35 minutes of time were spent preparing this complex discharge summary. Patient was discharged on 06/21/2024. This dictation was prepared using [employer] voice recognition software. Though every attempt is made to correct errors during dictation some may still exist. Patient Condition at Discharge: Stable Plan - Discharge Summary New Discharge Prescriptions: New Ferrous Sulfate [Slow Fe] 137 mg PO DAILY #30 tab RX: Omeprazole 40 mg PO DAILY #30 cap Continue RX: Tamsulosin [Flomax] 0.4 mg PO DAILY #7 cap RX: HYDROcodone/APAP 5-325MG [[place] 5-325] 1 tab PO Q6HR PRN 3 Days #12 tab PRN Reason: Pain RX: Acetaminophen Tab [Tylenol] 500 mg PO Q6HR PRN PRN Reason: Pain Or Fever > 100.5 RX: Aspirin [Adult Low Dose Aspirin EC] 81 mg PO DAILY Discharge Medication List RX: Tamsulosin [Flomax] 0.4 mg PO DAILY #7 cap 05/30/24 [Rx] RX: HYDROcodone/APAP 5-325MG [[place] 5-325] 1 tab PO Q6HR PRN 3 Days #12 tab 06/05/24 [Rx] RX: Acetaminophen Tab [Tylenol] 500 mg PO Q6HR PRN 06/19/24 [History] RX: Aspirin [Adult Low Dose Aspirin EC] 81 mg PO DAILY 06/19/24 [History] Ferrous Sulfate [Slow Fe] 137 mg PO DAILY #30 tab 06/20/24 [Rx] RX: Omeprazole 40 mg PO DAILY #30 cap 06/21/24 [Rx] Follow up Appointment(s)/Referral(s): Maggy Parr MD [STAFF PHYSICIAN] - 1 Week Marbin Goncalves DO [Primary Care Provider] - 1-2 days Alin Patel MD [STAFF PHYSICIAN] - 1 Week Patient Instructions/Handouts: Peptic Ulcer (DC), Cholecystitis (GEN) Activity/Diet/Wound Care/Special Instructions: Please get CBC lab within 3-5 days before following up with Dr. Goncalves. Please follow up with Dr. Parr regarding ulcer. Follow up with Dr. Patel post op. Discharge Disposition: HOME SELF-CARE
== END 2024-06-21 11:47 | disposition home or self-care (01) | DRG 418 ==
LOC: EC 11:36 → 4SSUR 18:02
PROVIDERS: ADMIT Student in an Organized Health Care Education/Training Program; ATTEND Student in an Organized Health Care Education/Training Program
PROC: 0FT44ZZ Resection of Gallbladder, Percutaneous Endoscopic Approach (ICD-10-PCS; principal; 2024-06-19 20:00)
DX: K81.0 Acute cholecystitis (principal); D62 Acute posthemorrhagic anemia; E87.20 Acidosis, unspecified; K82.1 Hydrops of gallbladder; K26.9 Duodenal ulcer, unspecified as acute or chronic, without hemorrhage or perforation; I71.43 Infrarenal abdominal aortic aneurysm, without rupture; N17.9 Acute kidney failure, unspecified; I25.2 Old myocardial infarction; F17.200 Nicotine dependence, unspecified, uncomplicated; F43.10 Post-traumatic stress disorder, unspecified; I25.10 Atherosclerotic heart disease of native coronary artery without angina pectoris; K44.9 Diaphragmatic hernia without obstruction or gangrene; N28.1 Cyst of kidney, acquired; Z79.82 Long term (current) use of aspirin; Z87.442 Personal history of urinary calculi; Z79.899 Other long term (current) drug therapy; Z87.11 Personal history of peptic ulcer disease; Z28.21 Immunization not carried out because of patient refusal
CPT/HCPCS: 36415; 74177; 76705; 80048; 80053; 81001; 82150; 82728; 83540; 83550; 83605; 83690; 83735; 84466; 85025; 85045; 85610; 85730; 96361; 96365; 96375; 99285